=== PATIENT | male | born 1940 | race African-American/Black ===

== ENCOUNTER → 2016-08-14 | Outpatient (CLI) | payer OTHER ==
[~2016-08-14] VITALS: Ht 172.7 cm; Wt 77.0 kg
[~2016-08-14] MED LIST: ALDACTAZIDE 251 EAC1 PO; ALDACTONE25 MG PO; CIPROFLOXACIN500 M1 PO; COLACE100 MG PO; FLAGYL375 MG PO; FLOMAX PO; HYDROCODONE-AP1 EAC6 PO; LORATIDINE 10 M10 M1 PO; MOBIC15 MG PO; NAPROXEN375 MG PO; PEPCID PO; PHENERGAN25 MG RE; PREDNISONE 10 M10 MG PO; ROBAXIN 750 MG750 M1 PO; SIMVASTATIN40 MG PO; TRAMADOL 50 MG50 MG PO; VICODIN 5-5001 EACH PO; ZOCOR40 MG PO
--- NOTE | ~2016-08-14 | HPC ---
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 The patient has ongoing radicular pain. We sought authorization to proceed with epidural injection under fluoroscopy. This was obtained. The patient presents to pain clinic today for said injection. Notes this pain continues in the low back, bilateral legs to feet radiating 8/10. ASSESSMENT: Symptomatic lumbar radiculopathy status post decompressive laminectomy. PROCEDURE: Lumbar epidural injection under fluoroscopy. PROCEDURE NOTE: After both written and informed consent to include risk of spinal cord damage, increased pain, weakness and dural puncture, the patient was taken to the fluoroscopy suite, placed in the prone position. After sterile prep and drape, a skin wheal with lidocaine was raised. A 22-gauge epidural Tuohy needle was inserted in the midline at L4-L5 with good loss to resistance. Negative aspiration for cerebrospinal fluid or blood was noted. Then 1 mL of Omnipaque under biplanar fluoroscopy showed good spread within the epidural space. This was followed with 80 mg of triamcinolone plus 1 mL of 1.5% preservative-free Xylocaine, 0.5 mL Xylocaine was then injected to flush the needle; it was removed. The patient was monitored for an appropriate period of time and discharged in good and stable condition. <ELECTRONICALLY SIGNED> By: Dewey Nicolas DO 08/20/16 0738 [id number] Dewey Nicolas DO /nt
[2016-08-14 14:06] VITALS: BP 136/81
== END ==
LOC: PAIN 06:52
DX: M54.16 Radiculopathy, lumbar region (principal); M96.1 Postlaminectomy syndrome, not elsewhere classified; I10 Essential (primary) hypertension

== ENCOUNTER → 2016-09-04 | Outpatient (CLI) | payer OTHER ==
[~2016-09-04] VITALS: Ht 172.7 cm; Wt 73.6 kg
--- NOTE | ~2016-09-04 | HPC ---
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 He had good yet transient relief with the injection, pain continues up to an 8 on a 0-10 visual analog scale, bilateral leg pain starting at the hips going down legs. Pain is exacerbated with standing, walking and bending. PHYSICAL EXAMINATION: Shows pleasant 76-year-old gentleman, BMI is 25.8 kilograms per meter squared. Vital signs stable. Still has some slight decrease hip flexion, lower extremity extension strength. Positive straight leg raise bilaterally. ASSESSMENT: Symptomatic lumbar radiculopathy, status post decompressive laminectomy. RECOMMENDATION: Repeat epidural injection under fluoroscopy today at L4-L5. Follow up in 3 weeks for reevaluation. PROCEDURE NOTE: Lumbar epidural injection under fluoroscopy. PROCEDURE NOTE: After both written and informed consent to include risk of spinal cord damage, increased pain, weakness and dural puncture, the patient was taken to the fluoroscopy suite, placed in the prone position. After sterile prep and drape, a skin wheal with lidocaine was raised. A 22-gauge epidural Tuohy needle was inserted in the midline at ____ with good loss to resistance. Negative aspiration for cerebrospinal fluid or blood was noted. Then 1 mL of Omnipaque under biplanar fluoroscopy showed good spread within the epidural space. This was followed with 80 mg of triamcinolone plus 1 mL of 1.5% preservative-free Xylocaine, 0.5 mL Xylocaine was then injected to flush the needle; it was removed. The patient was monitored for an appropriate period of time and discharged in good and stable condition. By: [id number] Dewey Nicolas DO /nt
[2016-09-04 13:28] VITALS: BP 140/79
== END ==
LOC: PAIN 07:06
DX: M54.16 Radiculopathy, lumbar region (principal); M96.1 Postlaminectomy syndrome, not elsewhere classified; I10 Essential (primary) hypertension

== ENCOUNTER → 2016-10-02 | Outpatient (CLI) | payer OTHER ==
[~2016-10-02] VITALS: Ht 172.7 cm; Wt 72.6 kg
[~2016-10-02] MED LIST changes: +GABAPENTIN100 MG PO
--- NOTE | ~2016-10-02 | HPC ---
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 Last visit 09/04/2016, we did an epidural injection L4-L5 with really nominal efficacy. The patient states injection afforded about 60% relief for 2 weeks. He stopped naproxen. He takes really minimal medications, simply Zocor and Aldactone. Returns to pain clinic today. We have seen for prolonged visit from 12:40-13:05. Greater than 50% of this 25+ minute visit was spent reviewing history and making medical decisions and counseling the patient. The patient had back surgery in 2013. There was 1 MRI 1 month after the surgery. He has had ongoing pain with really nominal efficacy from the surgery. Bilateral leg pain started in the hips and going down both legs, left greater than right. Rates the pain 8 on a 0-10 visual analog scale. Notes pain is exacerbated with walking, standing or bending. PHYSICAL EXAMINATION: Shows a pleasant 76-year-old gentleman appearing somewhat younger than stated age. BMI is 24.3 kilograms per meter squared. Vital signs show modest hypertension 157/83, pulse 65, respirations are 15. Rises from chair easily. Gait is tandem. Lower extremity strength is generally preserved, has some weakness in the bilateral thighs to hip flexion, feels the legs do feel "weak." He has some numbness, paresthesia in the anterior thighs. RECOMMENDATIONS: Discussion with the patient today about therapeutic concerns. Again with ongoing pain, nominal efficacy following 2 epidural injections or somewhat in a conundrum for treatment. We elected to get an MRI with and without contrast to ensure there is no surgically correctible pathology. Again, pain is primarily neuropathic with some subjective and objective weakness in the anterior thighs. We elected to start gabapentin 100 mg, gradually titrating up to 3 at night. We talked about surgical options, which the patient is not too enthusiastic about given nominal efficacy following the prior surgery. We talked about spinal cord stimulator as a possible treatment option. We will see the patient back in about 2 weeks for reevaluation. We will evaluate efficacy of starting the gabapentin and we will review the diagnostic findings from the MRI with and without contrast. [place] [address] PAIN MANAGEMENT CONSULTATION Name: PRASHANT GREEN Room #: REG ESTRADA Torres#: [id number] Admission: 10/02/16 Attend Phys: Dewey Nicolas DO Discharge: Date of : 42 Report #: [id number] be needed prior to the contrast. ASSESSMENT: Symptomatic lumbar radiculopathy status post decompressive laminectomy, neuropathic pain component, requiring complex medication management. The patient was seen for a prolonged visit from 12:40-13:05; greater than 50% of this time spent counseling the patient. <ELECTRONICALLY SIGNED> By: Dewey Nicolas DO 10/03/16 1308 [id number] Dewey Nicolas DO /nt
[2016-10-02 12:39] VITALS: BP 157/83
== END | disposition home or self-care (01) ==
LOC: PAIN 07:28
DX: M54.16 Radiculopathy, lumbar region (principal); G62.9 Polyneuropathy, unspecified

== ENCOUNTER → 2016-10-17 | Outpatient (CLI) | payer OTHER ==
[2016-10-17 14:16] LABS: CREATININE 1.1 mg/dL (0.7-1.3)
== END ==
LOC: MRI 10-09 12:39
PROVIDERS: Anesthesiology Pain Medicine
DX: M47.896 Other spondylosis, lumbar region (principal); R53.1 Weakness

== ENCOUNTER → 2016-10-23 | Outpatient (CLI) | payer OTHER ==
[~2016-10-23] VITALS: Ht 172.7 cm; Wt 71.2 kg
--- NOTE | ~2016-10-23 | HPC ---
[facility] [place] [address] PAIN MANAGEMENT CONSULTATION Name: PRASHANT GREEN Room #: REG [facility] Gaudencio.#: [id number] Admission: 10/23/16 Attend Phys: Dewey Nicolas DO Discharge: Date of : 42 Report #: [id number] THIS REPORT FOR: //name// CC: ROYA Nicolas HISTORY OF PRESENT ILLNESS: The patient is a very pleasant 76-year-old gentleman initially seen in consultation 08/11/2016. The patient was diagnosed with symptomatic lumbar radiculopathy secondary to spinal stenosis with component of neurogenic claudication. He has had 2 lumbar epidural injections, 08/14/2016, and again on 09/04/2016. The patient returns to pain clinic today noting that both injections afforded good, greater than 60% relief; however, was transient for about 2 weeks. He has classic neurogenic claudication, relatively comfortable at rest, but pain in his bilateral hips and legs, exacerbated with standing, walking for any period of time, he notes pains scores up to a 7/10 on the VAS. I did get an MRI of the lumbar spine. The patient had a decompressive laminectomy at L3-L4 in about 2013 with transient improvement of symptoms. MRI 10/17/2016 notes severe disk desiccation at L3-L4 through L5-S1. Most concerning, there is severe spinal stenosis at L2-L3 down to 0.36 cm. There is the prior decompressive laminectomy noted at L3-L4. There is severe left and moderate right neural foraminal narrowing at L4-L5, left paramedian disk protrusion at the postoperative site L3-L4 and again diffuse moderate bulging disk at L2-L3, increased in prominence and facet changes with ligamentum flavum hypertrophy resulting in severe stenosis measuring 0.36 cm with marked lateral recess narrowing and moderate to severe neural foraminal narrowing. The nerve roots cephalad to this are significantly redundant suggesting a very severe stenosis, which has developed since the prior 07/10/2014 imaging study. PHYSICAL EXAMINATION: The patient presents to pain clinic today, a very pleasant, well-dressed, dapper gentleman. Again, notes chronic persistent back and leg pain, 7/10 with activity. BMI is 23.9 kilograms per meter squared. Blood pressure 134/91, pulse 69, respirations 16. Rises from a chair using armrest, modestly antalgic gait is intact. Some diffuse tenderness across the low back. No discrete trigger points are noted. Lower extremity strength at rest is symmetric at 4/5. Deep tendon reflexes are symmetric. Straight leg raise does show some sciatic type irritation bilaterally though this is fairly nominal. ASSESSMENT: Symptomatic lumbar radiculopathy secondary to spinal stenosis with significant neurogenic claudication in a gentleman status post decompressive laminectomy. [address] [address] PAIN MANAGEMENT CONSULTATION Name: PRASHANT GREEN Room #: REG ESTRADA Torres#: [id number] Admission: 10/23/16 Attend Phys: Dewey Nicolas DO Discharge: Date of : 44 Report #: [id number] RECOMMENDATION: Long discussion with the patient today about therapeutic options. I would really like for him to get another opinion regarding decompression at the L2-L3 site. If surgery is considered a good option, I strongly suggest he move forward with the surgery. If surgeon feels anatomy is such that decompressive surgery would be significantly involved making for a poor risk to benefit ratio, and/or if surgery simply is not considered an option, I will be happy to see the patient for consideration for spinal cord stimulator to help mitigate the radicular pain symptoms. If there is a definitive surgical intervention, I do think the patient would be open to this. At 76 years of age, he is in actually fairly good shape: BMI is 23.9 kilograms per meter squared. He takes prescription medications for modest dyslipidemia and hypertension. He does not smoke. Does not drink alcohol to excess. Does not have diabetes, no significant coronary artery disease or pulmonary disease to make him a poor surgical candidate. I think he is physiologically much younger than his chronologic age. I will be happy to see the patient after he has been seen for neurosurgical opinion. I did suggest that he follow up with Dr Americo Ferrer or the neurosurgical consultants at [facility], depending on who was on his insurance panel. <ELECTRONICALLY SIGNED> By: Dewey Nicolas DO 10/24/16 0713 1332 0134 Dewey Nicolas DO /nt
[2016-10-23 12:48] VITALS: BP 134/91
== END | disposition home or self-care (01) ==
LOC: PAIN 06:49
DX: M54.16 Radiculopathy, lumbar region (principal); M48.06 Spinal stenosis, lumbar region; I73.9 Peripheral vascular disease, unspecified

== ENCOUNTER → 2020-03-02 | Outpatient (CLI) | payer OTHER ==
[~2020-03-02] VITALS: Ht 162.6 cm; Wt 74.4 kg
[~2020-03-02] MED LIST changes: +LIPITOR 20 MG T20 M1 PO; +METFORMIN HCL500 MG PO; +NEURONTIN100 MG PO; +NORVASC5 MG PO; -ZOCOR40 MG PO
[2020-03-02 13:53] VITALS: BP 141/89
--- NOTE | 2020-03-02 14:09 | NUR ---
Pain Clinic Assessment: 1. History of Osteoarthritis: SPINE History of Rheumatoid Arthritis: NO 2. Height: 5 ft. 4 in. 162.6 cm. Weight: 164.0 lb. oz. 74.390 kg. Patient's BMI: 28.1 3. Vital Signs: BP: 141/89 Pulse: 63 Resp: 14 Temp: 02 Sat: 100 ECG Mon: 4. Pain Intensity: 9 5. Fall Risk: Dizziness: N Needs help standing or walking: N Fallen in the last 3 months: N Fall risk comments: 6. Patient on Blood Thinner: None 7. History of Hypertension: Y 8. Opioid Therapy greater than 6 weeks: N Opiate Contract Signed: 9. Risk Assessment Tool Provided: 10. Functional Assessment Tool: 11. Recreational Drug Use: Never Drug Type: Tobacco Use: Never Smoker Tobacco Type: Amount or Packs/day: How Many Years: Alcohol Use: No Frequency: Quant:
--- NOTE | 2020-03-27 12:03 | HPC ---
[facility] [address] [place] [address] PAIN MANAGEMENT CONSULTATION Name: PRASHANT GREEN Room #: REG Codi Gaudencio.#: [id number] Admission: 03/02/20 Attend Phys: Valente Urbina MD Discharge: Date of : 42 Report #: [id number] CC: Valente García DATE OF SERVICE: 03/02/2020 CHIEF COMPLAINT: Bilateral leg pain with pain that goes down the hips and down into both ankles and legs. HISTORY: The patient is a 79-year-old gentleman who has been referred to the pain clinic for evaluation. The patient has had back surgery. 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 He rates his pain intensity as a 9/10. Pain is worsened with activity such as walking, standing and improves with rest and sitting. In the past, he has undergone epidural steroid injections. His laminectomy was in 2010. He continues to have some numbness bilaterally in his thighs. He has been using medications to help with pain. He does have a history of diabetes. Last epidural steroid injections were in 2017. ALLERGIES: No known drug allergies. CURRENT MEDICATIONS: Aldactazide 25/25, metformin 500 mg b.i.d., Norvasc 5 mg, spironolactone 25 mg, and Lipitor 20 mg. PAST MEDICAL HISTORY: 1. Benign prostatic hypertrophy. 2. 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 3. Hypercholesterolemia. 4. Type 2 diabetes. 5. Ureteral colic history of calcium oxalate stones. PAST SURGICAL HISTORY: Cataract extraction, bilateral in 1999, lumbar diskectomy in 1999, lumbar laminectomy in 2002 and prostate biopsy in 2019. 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 REVIEW OF SYSTEMS: Generally good health, wears glasses, diabetes. LABORATORY DATA: No new laboratory values are available. Last MRI from 10/17/2016 showed multilevel degenerative disk changes are seen. There is critical stenosis at L2-L3, which has progressed with redundant nerve roots at the L2 level, some enhancement involving the nerve roots at this level are probably related to the severe stenosis. Additional degenerative changes, level with a disk extrusion and spurring seen to the left of L3-L4 extending along the inferior aspect of L3. Previous surgical changes are seen at this level. No new lateralizing disk protrusions. PAIN CLINIC ASSESSMENT AND PQRS: 1. The patient has some arthritic changes in his spine. He is not being treated for rheumatoid arthritis. 2. Height 5 feet 4 inches, weight 164 pounds, BMI is 28. 3. Vital Signs: Blood pressure 141/89, pulse 63, respiratory rate 14, room air saturation 100%. 4. Pain intensity 9/10. 5. Fall history: The patient has not fallen in the last 3 months. 6. Blood thinner. The patient is not on a blood thinning medication. 7. Hypertension. The patient is being treated for hypertension. 8. Opioids greater than 6 weeks. The patient receives medications from his primary. 9. Risk assessment tool, low for opioid use. 10. Functional assessment tool reviewed. 11. Recreational drug use: The patient denies. 12. Tobacco: The patient has never smoked. 13. Alcohol. The patient denies frequent use of alcoholic beverages. PHYSICAL EXAMINATION: GENERAL: The patient is a well-developed, well-nourished black male. He appears his stated age of 79 years. He is alert and oriented x 3. His affect is appropriate. Speech is fluent. HEENT: Normocephalic, atraumatic. Extraocular eye muscles intact. The patient is wearing a facial covering. HEART: Regular rate. LUNGS: Clear. ABDOMEN: Nontender. MUSCULOSKELETAL: Upper extremity muscle strength judged to be 5-/5 for the major muscle groups in the upper extremity. The patient has a well-healed scar in the lower portion of his back. The patient walks with a slow, somewhat antalgic gait. He complains of pain and discomfort in the anterior portion of his thighs and down in the area of his shins. IMPRESSION: 1. History of spinal stenosis with continued radicular pain and discomfort. 2. Benign prostatic hypertrophy. 3. 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 4. Hypercholesterolemia. 5. Type 2 diabetes. 6. Ureteral colic history of calcium oxalate stones. RECOMMENDATIONS: We discussed treatment options with the patient. At this juncture, we will try gabapentin. A script for 100 mg p.o. t.i.d. will be started. The patient will take the medications as described. He will take 1 tablet for 7 days followed by 2 tablets after 1 week and eventually 3 tablets. We will increase this as he is able to tolerate it. We would like to thank you for letting us participate in his care. We hope he continues to improve. <ELECTRONICALLY SIGNED> By: Valente Urbina MD 03/27/20 1203 [id number] [id number] Valente Urbina MD /heather
== END ==
LOC: PAIN 12:14
PROVIDERS: ATTEND Anesthesiology Pain Medicine
DX: M79.604 Pain in right leg (principal); M79.605 Pain in left leg; E11.9 Type 2 diabetes mellitus without complications; E78.00 Pure hypercholesterolemia, unspecified; G89.29 Other chronic pain; M54.5 Low back pain; M96.1 Postlaminectomy syndrome, not elsewhere classified; N40.0 Benign prostatic hyperplasia without lower urinary tract symptoms; Z87.39 Personal history of other diseases of the musculoskeletal system and connective tissue; Z87.442 Personal history of urinary calculi

== ENCOUNTER → 2021-03-28 | Outpatient (CLI) | payer OTHER | LOC: ULTRA 12:58 | PROVIDERS: ATTEND Family Medicine | DX: N43.3 Hydrocele, unspecified (principal); N45.2 Orchitis; N50.811 Right testicular pain; N50.812 Left testicular pain ==